=== PATIENT | male | born 1965 | race Caucasian/White ===

== ENCOUNTER 2017-06-30 09:36 | Inpatient (IN) | payer BC, OTHER ==
[~2017-06-30] VITALS: Ht 195.6 cm; Wt 93.0 kg
[2017-06-30] MEDS ORDERED: ONDANSETRON 4 MG/2 ML VIAL IM PRN (23:30)
[2017-06-30] MEDS ORDERED: LOPERAMIDE HCL 2 MG CAPSULE PO PRN ×2 (23:30)
[2017-06-30] MEDS ORDERED: MAGNESIUM HYDROXIDE 30 ML LIQUID UDC PO PRN (23:30)
[2017-06-30] MEDS ORDERED: ACETAMINOPHEN 325 MG TABLET PO PRN (23:30)
[2017-06-30] MEDS ORDERED: DICYCLOMINE HCL 20 MG TABLET PO PRN (23:30)
[2017-06-30] MEDS ORDERED: LORAZEPAM 2 MG/1 ML VIAL IM PRN (23:30)
[2017-06-30] MEDS ORDERED: IBUPROFEN 400 MG TABLET PO PRN (23:30)
[2017-06-30] MEDS ORDERED: diphenhydrAMINE 50 MG CAPSULE PO PRN (23:30)
[2017-06-30] MEDS ORDERED: MAG HYDROX/AL HYDROX/SIMETH 30 ML LIQUID UDC PO PRN (23:30)
[2017-06-30] MEDS ORDERED: LORAZEPAM 1 MG TABLET PO PRN ×2 (23:30)
[2017-06-30] MEDS ORDERED: MIRALAX 17 GM POWD.PACK PO PRN (23:30)
[2017-06-30] MEDS ORDERED: ONDANSETRON ODT 4 MG TAB.RAPDIS SL PRN (23:30)
--- NOTE | 2017-07-01 00:15 | NUR ---
Pre Admission Note Pt seen in intake office. Pt is in stable condition. V/S WNL. No s/s of distress noted at this time. Respirations even and unlabored. Policies on medication disposal explained to and understood by patient. Will admit to unit. Will continue to monitor.
[2017-07-01] MEDS ORDERED: LORAZEPAM 1 MG TABLET PO SCH (00:30)
[2017-07-01] MEDS ORDERED: THIAMINE HCL 200 MG/2 ML VIAL IM ONE (00:30)
--- NOTE | 2017-07-01 00:35 | NUR ---
Admission note Pt is a 52 yo male, A+Ox4, presenting to [facility] for ETOH/Cocaine dependence. Pt has Allergies to dust and pollen, is on Full code status, and on Regular diet. Pt is 6'5" in height and 205 LBS in weight. Pt has medical HX of Depression and Chronic Generalized pain. Pt has Family HX of DMII from Mother and Father. Pt has Primary care provider named Ambreen Mariee. Pt has been drinking Alcohol for 34 years (12 years currently), has reached a level of 400ml moonshine and 6 beers 2-3x/week, and last dose was 18 beers on 06-28-17. Pt has been using Cocaine intranasal for 36 years (12 years currently), has reached a level of 1gm 2-3x/week, and last dose was 1gm on 06-28-17. Pt is taking home medications as follows: Ranitidine 150mg QD- Last dose taken 07-01-17, Lexapro 10mg QD- Last dose taken was "some time ago", Famotidine 10mg PRN, Azelastine HCL eye drops PRN, Aleve 220mg PRN, One a day MVI QD, Cortisporin Otic drops QIDPRN. Pt has HX of previous Detox/Rehab for 7 days Detox @ [place], [place] followed by 4-5 months Rehab @ [place], [place] in 2001. This was the patients last sober period. Pt also states that he drinks alcohol and uses cocaine on weekends mainly and not during the work week. Pt is a former cigarette smoker stating the he quit about 5-6 years ago. Pt is stable at this time with V/S WNL. No s/s of distress noted at this time. Respirations even and unlabored. Will continue to monitor.
[2017-07-01 00:43] LABS: BASOPHILS % (AUTO) 0.4 % (0.0-2.0); EOSINOPHILS # (AUTO) 0.1 K/uL (0.0-0.7); EOSINOPHILS % (AUTO) 1.6 % (0.0-7.0); HEMATOCRIT 41.4 % (36.7-47.1); HEMOGLOBIN 13.8 g/dL (12.5-16.3); LYMPHOCYTES # (AUTO) 1.7 K/uL (20.0-40.0); LYMPHOCYTES % (AUTO) 25.2 % (20.5-51.5); MEAN CORPUSCULAR HEMOGLOBIN 28.9 uug (23.8-33.4); MEAN CORPUSCULAR HGB CONC 33 g/dL (32.5-36.3); MEAN CORPUSCULAR VOLUME 86.4 fL (73.0-96.2); MONOCYTES # (AUTO) 0.4 K/uL (2.0-10.0); MONOCYTES % (AUTO) 6.6 % (0.0-11.0); NEUTROPHILS # (AUTO) 4.5 K/uL (1.8-8.9); NEUTROPHILS % (AUTO) 66.2 % (38.5-71.5); PLATELET COUNT (AUTO) 196 K/uL (152-348); RED BLOOD CELL COUNT(AUTO) 4.79 MIL/uL (4.06-5.63); WHITE BLOOD COUNT (AUTO) 6.8 K/uL (3.6-10.2)
[2017-07-01 00:45] VITALS: BP 154/96
[2017-07-01 00:45] LABS: *AMPHETAMINE, URINE NEGATIVE (NEGATIVE); *BARBITURATE, URINE NEGATIVE (NEGATIVE); *CANNABINOID, URINE NEGATIVE (NEGATIVE); *COCCAINE, URINE POSITIVE (NEGATIVE); *OPIATE, URINE NEGATIVE (NEGATIVE); *PHENCYCLIDINE SCREEN,URINE NEGATIVE (NEGATIVE)
[2017-07-01] MEDS ORDERED: FAMO20TA8 PO (00:48)
[2017-07-01] MEDS ORDERED: NEOM10DR11 EACH EAR (00:48)
[2017-07-01] MEDS ORDERED: RANI150T12 PO (00:48)
[2017-07-01] MEDS ORDERED: MULT-1121 PO (00:48)
[2017-07-01] MEDS ORDERED: NAPR1TAB28 PO (00:48)
[2017-07-01] MEDS ORDERED: ESCI10TA PO (00:48)
[2017-07-01] MEDS ORDERED: AZEL6DRO5 EACHEYE (00:48)
[2017-07-01 00:53] LABS: ETHANOL < 3 MG/DL (0-0)
[2017-07-01] MEDS ORDERED: THIAMINE HCL 200 MG/2 ML VIAL ONE (01:06)
[2017-07-01 01:16] LABS: ALANINE AMINOTRANSFERASE 38 U/L (16-63); ALKALINE PHOSPHATASE 68 U/L (50-136); AMYLASE 131 U/L (25-115); ASPARTATE AMINOTRANSFERASE 14 U/L (15-37); BILIRUBIN,TOTAL 0.5 mg/dL (0.2-1.0); CARBON DIOXIDE 24 mmol/L (21-32); CHLORIDE 104 mmol/L (98-107); CREATININE 1.5 mg/dL (0.6-1.3); GLUCOSE 126 mg/dL (74-106); MAGNESIUM 1.9 mg/dL (1.8-2.4); POTASSIUM 3.3 mmol/L (3.5-5.1); TOTAL PROTEIN, SERUM 7.7 g/dL (6.4-8.2); UREA NITROGEN, BLOOD 19 mg/dL (7-18)
[2017-07-01] MEDS ORDERED: LORAZEPAM 1 MG TABLET ONE (01:23)
[2017-07-01 04:31] VITALS: BP 123/73
--- NOTE | 2017-07-01 06:57 | NUR ---
End of shift note Pt is a 52 yo male, A+Ox4, presenting to [facility] for ETOH/Cocaine dependence. Pt has Allergies to dust and pollen, is on Full code status, and on Regular diet. Pt is on Fall and Seizure precautions. Pt has HX of Depression and Chronic generalized pain. Pt is on PRN medications until further evaluation from MD in AM. No PRN's given throughout shift. Pt slept for a total of 5 HRS. Last CIWA: 4 @0400. No s/s of distress noted at this time. Respirations even and unlabored. Will endorse to day shift nurse.
--- NOTE | 2017-07-01 07:20 | NUR ---
Start of Shift Jewelry Estimator received report on 52 year old male admitted to [facility] early this morning, 07/01/17. Pt admitted for ETOH and Cocaine detoxification. Pt endorses allergies to pollen and dust. Pt eats a regular diet and is a full code. Pt reports a PMH of depression and chronic generalized pain thru out body. Pt reports no history of seizures. Pt has not been started on a taper. ordered OT 2mgAtivan on NOC, pt tolerated well. Last [facility] 4 assessed at 0400. Jewelry Estimator encounters pt resting on bed. Pt is calm and cooperative, able to make needs known. A/O x4, denies any A/VH or HI/SI. Pt with a flat affect and depressed mood. Pt states he feels, ehh with no specific complaints. Pt prefers to remain resting. Bed in low position, wheels locked and side rails up x2. Will continue to monitor, support and encourage according to plan of care.
[2017-07-01 08:10] VITALS: BP 128/86
[2017-07-01] MEDS ORDERED: TUBERCULIN,PURIF.PROT.DERIV. 5 TU/0.1 ML TEST ID ONE (09:00)
[2017-07-01] MEDS: MULTIVITAMINS,THERAPEUTIC TABLET PO SCH (09:21)
[2017-07-01] MEDS: THIAMINE HCL 100 MG TABLET PO SCH (09:21)
[2017-07-01] MEDS: FOLIC ACID 1 MG TABLET PO SCH (09:21)
[2017-07-01] MEDS ORDERED: POTASSIUM CHLORIDE 20 MEQ TAB.PRT.SR PO ONE (10:00)
[2017-07-01] MEDS ORDERED: PATIENT MAY USE OWN MED- MD OK EACHEYE PRN (10:00)
--- NOTE | 2017-07-01 10:59 | NUR ---
PRN Ativan Pt complain increased anxiety, nausea and irritability. Pt skin is moist and he has slight tremors. Administered Ativan per [facility] assessment protocol. Pt tolerated medication well. Will continue to monitor, support and encourage according to plan of care.
--- NOTE | 2017-07-01 12:00 | NUR ---
PRN Re-Assessment Pt states he is feeling better, still has some general complaints. Pt to be started on Ativan taper. Will continue to monitor, support and encourage according to plan of care.
[2017-07-01] MEDS: LORATADINE 10 MG TABLET PO SCH (12:24)
[2017-07-01] MEDS: FLUTICASONE PROP NASAL SPRAY 16 GM BOTTLE NS SCH (12:25)
--- NOTE | 2017-07-01 12:30 | NUR ---
Labs Director And Professor collected swabs for flu and strep as well as urine for tests to run in laboratory as result of MD orders. Director And Professor delivered samples to the lab. Awaiting results.
[2017-07-01 12:43] VITALS: BP 143/85
[2017-07-01] MEDS: LORAZEPAM 1 MG TABLET PO SCH ×2 (15:12→21:35)
--- NOTE | 2017-07-01 15:45 | NUR ---
End of Shift(Endorsement to Primary Nurse) Online Merchandising Manager provided report on 52 year old male admitted to [facility] early this morning, 07/01/17. Pt admitted for ETOH and Cocaine detoxification. Pt endorses allergies to pollen and dust. Pt eats a regular diet and is a full code. Pt reports a PMH of depression and chronic generalized pain thru out body. Pt reports no history of seizures. Pt started on modified Ativan taper. Last CIWA 9 assessed at 1200. Pt has been isolative to room, withdrawn and guarded with staff. Makes needs known. Pleasant and polite with staff. Bed in low position, wheels locked and side rails up x2. Will continue to monitor, support and encourage according to plan of care.
[2017-07-01 16:00] VITALS: BP 140/90
--- NOTE | 2017-07-01 16:15 | NUR ---
Report received; Detailed report received from previous nurse. Patient is currently resting in the room, respirations even and unlabored. All safety measures secured. Will continue to monitor patient.
--- NOTE | 2017-07-01 18:20 | NUR ---
End of shift note; Patient is AOx4. Patient was placed on a modified Ativan taper, no adverse reactions noted. Potassium was supplement by previous nurse. Patient remained compliant with treatment plan and medication regime. Patient's last CIWA is 7 at 1600. Medications noted to be effective in reducing withdrawal symptoms. All safety measures secured. Met all needs.
--- NOTE | 2017-07-01 19:10 | NUR ---
Start of shift note Received report from day shift nurse. Pt is a 52 yo male, A+Ox4, presenting to [facility] for ETOH/Cocaine dependence. Pt has Allergies to dust and pollen, is on Full code status, and on Regular diet. Pt is on Fall and Seizure precautions. Pt has HX of Depression and Chronic generalized pain. Pt is on 3 day Ativan taper, tolerated well. No s/s of distress noted at this time. Respirations even and unlabored. Will continue to monitor.
[2017-07-01 20:17] VITALS: BP 146/97
[2017-07-02] VITALS (7 sets, daily range): BP systolic 124–151; BP diastolic 82–101
--- NOTE | 2017-07-02 07:00 | NUR ---
End of shift note Pt is a 52 yo male, A+Ox4, presenting to [facility] for ETOH/Cocaine dependence. Pt has Allergies to dust and pollen, is on Full code status, and on Regular diet. Pt is on Fall and Seizure precautions. Pt has HX of Depression and Chronic generalized pain. Pt is on 3 day Ativan taper, tolerated well. No PRN's given throughout shift. Pt slept for a total of 11 HRS. Last CIWA: 3 @0400. No s/s of distress noted at this time. Respirations even and unlabored. Will endorse to day shift nurse.
--- NOTE | 2017-07-02 07:30 | NUR ---
START OF SHIFT Pt 52 y/o male admitted for etoh/ cocain dependence. Pt received in room on bed with eyes closed resting, but easily arousable to name. Pt alert and oriented to name, place, and time. Perrla. Skin warm and slightly moist to touch. Respirations even and unlabored. Bilateral hand tremors noted slightly. It was reported that pt slept. It was reported that pt slept for 11 hours last night. Bed on lowest position with side rail x2 up for safety. Call light within reach. No distress noted at this time.
[2017-07-02] MEDS: THIAMINE HCL 100 MG TABLET PO SCH (08:30)
[2017-07-02] MEDS: FOLIC ACID 1 MG TABLET PO SCH (08:30)
[2017-07-02] MEDS: LORATADINE 10 MG TABLET PO SCH (08:30)
[2017-07-02] MEDS: MULTIVITAMINS,THERAPEUTIC TABLET PO SCH (08:30)
[2017-07-02] MEDS: FLUTICASONE PROP NASAL SPRAY 16 GM BOTTLE NS SCH (08:31)
[2017-07-02] MEDS: LORAZEPAM 1 MG TABLET PO SCH ×2 (08:31→20:32)
[2017-07-02] MEDS: PATIENT MAY USE OWN MED- MD OK PO SCH (08:31)
[2017-07-02] MEDS: ESCITALOPRAM OXALATE 10 MG TABLET PO SCH (08:31)
--- NOTE | 2017-07-02 08:31 | NUR ---
PRN Pt with c/o dry eyes. Eye gtt prn per MD order given and tolerated well.
[2017-07-02 09:10] LABS: CREATININE 1.3 mg/dL (0.6-1.3); MAGNESIUM 1.9 mg/dL (1.8-2.4); POTASSIUM 3.7 mmol/L (3.5-5.1)
[2017-07-02 11:07] LABS: HEPATITIS B SURFACE AG Negative (Negative)
--- NOTE | 2017-07-02 16:15 | NUR ---
Therapist prompted client about group times. Client stated he will try to attend groups tomorrow, when he feels better.
[2017-07-02] MEDS: hydrALAZINE HCL 50 MG TABLET PO PRN (16:56)
--- NOTE | 2017-07-02 16:57 | NUR ---
PRN pt with fc=055/71. Hyrdalazine po prn per MD order given and tolerated well.
--- NOTE | 2017-07-02 17:57 | NUR ---
PRN EVAL Pt with jv=126/72
--- NOTE | 2017-07-02 18:39 | NUR ---
END OF SHIFT Pt 52 y/o male admitted for etoh/ cocaine dependence. Pt alert and oriented to name, place, and time. Perrla. Skin warm and slightly moist to touch. Respirations even and unlabored. Bilateral hand tremors noted slightly. Pt observed mostly isolative to room , but did attend group activity. Pt was seen by MD today. Pt was seen by Dr. Gomez this afternoon, but refused any suggestions Dr. Gomez made, per Dr. Gomez. Pt medication compliant and tolerated well. No ASE noted. Bed on lowest position with side rail x2 up for safety. Call light within reach. No distress noted at this time.
--- NOTE | 2017-07-02 20:00 | NUR ---
Start of Shift Notes Received 52 y/o male admitted on 06/30/2017 for etoh/ cocaine dependence. Px is on regular diet, Full Code and has allergies on pollen and dust. Px reported PMHx of depression, seasonal allergies and chronic generalized pain. During the rounds at 2000, px complained of H/A 5/10 with mild anxiety. Px is on 3 day modified Ativan taper. Respirations are even and unlabored. Bed on lowest position with side rail x2 up for safety. Call light within reach. We'll continue to monitor.
--- NOTE | 2017-07-02 20:33 | NUR ---
PRN Tylenol Px complained of H/A 10/15. Tylenol 325 mg/tab, 2 tabs given PO as PRN med. We'll continue to monitor.
[2017-07-03] VITALS: BP 120/81
[2017-07-03 04:00] VITALS: BP 124/79
--- NOTE | 2017-07-03 04:00 | NUR ---
CIWA deferred CIWA deferred at 0000 and 0400 due to the px is asleep, to assess if the px is awake per doctor's order. We'll continue to monitor.
--- NOTE | 2017-07-03 07:21 | NUR ---
End of Shift Notes 52 y/o male admitted on06/30/2017 for etoh/ cocaine dependence. Px is on regular diet, Full Code and has allergies on pollen and dust. Px reported PMHx of depression, seasonal allergies and chronic generalized pain. Px is on 3 day modified Ativan taper. During the shift, px complained of H/A 5/10 with mild anxiety. At 2032, Tylenol 325 mg/tab, 2 tabs given PO as PRN med. Oral intake of 350 ml, voided 1x, No BM. Slept for 9 hours. Respirations are even and unlabored. Bed on lowest position with side rail x2 up for safety. Call light within reach. We'll continue to monitor.
--- NOTE | 2017-07-03 07:37 | NUR ---
BEGINNING OF SHIFT Patient endorsement report received from night manager nurse, all pertinent information discussed. Patient is a 52 year old male with admitting Dx: ETOH dependence. Patient under close observation. Patient currently with ongoing Modified 3 day Ativan taper as ordered, patient is scheduled to receive last dose of Ativan this morning. will monitor ciwa and vital signs closely. patient received PRN: Tylenol during night manager medication effective. medications during night manager. patient slept for 9 hours, and last ciwa score of: 3. Patient received awake, alert and oriented x4, educated regarding plan of care for the day and medication regimen with good verbal understanding. safety measures in place. call light kept with in reach. all needs met and rendered, call light kept with in reach, will continue to monitor closely.
[2017-07-03] MEDS ORDERED: LORAZEPAM 1 MG TABLET PO SCH (09:00)
[2017-07-03 09:04] VITALS: BP 134/86
[2017-07-03] MEDS: PATIENT MAY USE OWN MED- MD OK PO SCH (09:05)
[2017-07-03] MEDS: THIAMINE HCL 100 MG TABLET PO SCH (09:05)
[2017-07-03] MEDS: ESCITALOPRAM OXALATE 10 MG TABLET PO SCH (09:05)
[2017-07-03] MEDS: LORATADINE 10 MG TABLET PO SCH (09:05)
[2017-07-03] MEDS: MULTIVITAMINS,THERAPEUTIC TABLET PO SCH (09:05)
[2017-07-03] MEDS: FOLIC ACID 1 MG TABLET PO SCH (09:05)
[2017-07-03] MEDS: FLUTICASONE PROP NASAL SPRAY 16 GM BOTTLE NS SCH (09:06)
--- NOTE | 2017-07-03 13:36 | NUR ---
THerapist prompted client to come to group today. Client agreed.
[2017-07-03 13:45] VITALS: BP 144/89
[2017-07-03] MEDS ORDERED: CLONIDINE HCL 0.1 MG TABLET PO PRN (14:15)
[2017-07-03] MEDS ORDERED: DIPH50CA37 PO (14:41)
[2017-07-03] MEDS ORDERED: IBUP-1953 PO (14:41)
[2017-07-03] MEDS ORDERED: CLON0.1T14 PO (14:41)
[2017-07-03] MEDS ORDERED: LORA-114 PO (14:41)
[2017-07-03] MEDS ORDERED: FLUT16SP NS (14:47)
[2017-07-03] MEDS ORDERED: RANI150T12 PO (14:47)
[2017-07-03 16:58] VITALS: BP 134/86
--- NOTE | 2017-07-03 19:04 | NUR ---
END OF SHIFT Patient alert and oriented x4, vital signs were WNL during shift. Patient is compliant with therapeutic plan of care. Patient with admitting Dx: ETOH dependence Completed modified Ativan taper as ordered, well tolerated, no ASE noted. During shift patient presented with: tremors that can be felt but not seen, barely sweating and mild anxiety. 0900 CIWA: 3; 1300 CIW: 3; 1700 CIWA: 2. Detox medication effective at reducing withdrawal symptoms. Received No PRN medications during shift. Patient is scheduled to be discharged tomorrow morning, noted self motivated towards sobriety. Encouraged adequate PO fluid intake as tolerated. Encouraged patient to attend group therapies/sessions to learn new coping skills to prevent relapse, noted attending and participating, denies SI/HI. Noted with good appetite during shift. Safety measures in place, call light kept with in reach. Fall precautions observed at all times. Will continue to monitor. Patient endorsed to station installer and repairer nurse, all pertinent information discussed.
[2017-07-03 20:00] VITALS: BP 156/99
--- NOTE | 2017-07-03 20:00 | NUR ---
START OF SHIFT NOTE RECEIVED REPORT FROM DAY SHIFT NURSE. PATIENT IS A 52 YEAR OLD MALE ADMITTED FOR ETOH/COCAINE DEPENDENCE. PATIENT COMPLETED 3 DAY MODIFIED ATIVAN TAPER. PATIENT IS MEDICALLY CLEARED TO BE DISCHARGE TOMORROW. PATIENT IS ALLERGIC TO DUST AND POLLEN. PATIENT DID NOT REQUIRE ANY PRN MEDICATION. LAST CIWA 2. RECEIVED PATIENT IN THE ROOM, ALERT AND ORIENTED X 4. RESPIRATION EVEN AND UNLABORED. PATIENT REPORTS ANXIETY AND SWEATING. DENIES ANY PAIN AT THIS TIME. SAFETY MEASURES IN PLACE. CALL LIGHT IN REACH. WILL CONTINUE TO MONITOR
--- NOTE | 2017-07-03 20:21 | NUR ---
PRN CATAPRES AND BENADRYL ADMINISTRATION PATIENT C/O ANXIETY, SWEATING, BP-155/99 HR-79 AND REQUESTS FOR SLEEP AID. WILL MONITOR FOR EFFECTIVENESS
[2017-07-03] MEDS: hydrALAZINE HCL 50 MG TABLET PO PRN (21:42)
--- NOTE | 2017-07-03 21:42 | NUR ---
PRN HYDRALAZINE ADMINISTRATION PATIENT'S BP RECHECKED . BP- 144/101 HR-73. HYDRALAZINE GIVEN. WILL MONITOR FOR EFFECTIVENESS
--- NOTE | 2017-07-03 22:30 | NUR ---
ÁNGELA ALBERTO RE-ASSESSMENT PATIENT IN BED WITH EYES CLOSED. RESPIRATION EVEN AND UNLABORED. SAFETY MEASURES IN PLACE. CALL LIGHT IN REACH. WILL CONTINUE TO MONITOR. Addendum: 07/04/17 at 0720 by DL ROMERO LVN ERROR : TIME CHARTING
--- NOTE | 2017-07-03 22:42 | NUR ---
PRN HYDRALAZINE RE-ASSESSMENT PATIENT'S BP RECHECKED . BP- 138/95 . HYDRALAZINE EFFECTIVE. WILL CONTINUE TO MONITOR
--- NOTE | 2017-07-03 23:00 | NUR ---
PRN BENADRYL RE-ASSESSMENT PATIENT IN BED WITH EYES CLOSED. RESPIRATION EVEN AND UNLABORED. SAFETY MEASURES IN PLACE. CALL LIGHT IN REACH. WILL CONTINUE TO MONITOR.
--- NOTE | 2017-07-04 | NUR ---
CIWA DEFERRED PATIENT IN BED WITH EYES CLOSED. VS REFUSED. RESPIRATION EVEN AND UNLABORED. WILL CONTINUE TO MONITOR.
--- NOTE | 2017-07-04 04:00 | NUR ---
CIWA DEFERRED PATIENT IN BED WITH EYES CLOSED. VS REFUSED. RESPIRATION EVEN AND UNLABORED. WILL CONTINUE TO MONITOR.
--- NOTE | 2017-07-04 07:12 | NUR ---
END OF SHIFT NOTE PATIENT SLEPT 7 HOURS. FLUID INTAKE 973 ML. VOIDED X 3. NO BM. PATIENT COMPLETED 3 DAY MODIFIED ATIVAN TAPER, TOLERATED WELL AND NO ADVERSE REACTION . PATIENT IS MEDICALLY CLEARED TO BE DISCHARGE TODAY.. PATIENT REPORTED ANXIETY AND SWEATING BEGINNING OF SHIFT. PATIENT WAS GIVEN PRN CLONIDINE FOR BP-156/99, AFTER AN HOUR BP WAS RECHECKED BP-144/101. HYDRALAZINE GIVEN AND WAS EFFECTIVE. BP- 138/95. DENIES ANY PAIN OR HEADACHE. PATIENT COMPLIANT WITH MEDICATIONS AND TREATMENT PLAN. SAFETY MEASURES IN PLACE. CALL LIGHT IN REACH. WILL CONTINUE TO MONITOR. LAST CIWA 2.
--- NOTE | 2017-07-04 07:28 | NUR ---
BEGINNING OF SHIFT Patient endorsement report received from steward/stewardess night nurse, all pertinent information discussed. Patient is a 52 year old male with admitting Dx: ETOH dependence. Patient under close observation. Patient completed Modified 3 day Ativan taper as ordered, patient is scheduled to be discharged today. patient received PRN: Clonidine during steward/stewardess night medication effective. patient slept for 7 hours, and last ciwa score of: 2. Patient received awake, alert and oriented x4, educated regarding plan of care for the day and medication regimen with good verbal understanding. safety measures in place. call light kept with in reach. all needs met and rendered, call light kept with in reach, will continue to monitor closely.
[2017-07-04 08:14] VITALS: BP 127/89
[2017-07-04] MEDS: LORATADINE 10 MG TABLET PO SCH (08:47)
[2017-07-04] MEDS: MULTIVITAMINS,THERAPEUTIC TABLET PO SCH (08:47)
[2017-07-04] MEDS: THIAMINE HCL 100 MG TABLET PO SCH (08:47)
[2017-07-04] MEDS: FOLIC ACID 1 MG TABLET PO SCH (08:47)
[2017-07-04] MEDS: ESCITALOPRAM OXALATE 10 MG TABLET PO SCH (08:47)
[2017-07-04] MEDS: FLUTICASONE PROP NASAL SPRAY 16 GM BOTTLE NS SCH (08:48)
[2017-07-04] MEDS: PATIENT MAY USE OWN MED- MD OK PO SCH (08:48)
--- NOTE | 2017-07-04 09:30 | NUR ---
DISCHARGE Patient discharged off the unit in stable condition, not in any apparent acute distress at 0930. Patient discharged to able to change in stable condition, vital signs WNL. no s/sx of withdrawal. Patient with last ciwa score of: 0. Patient noted self motivated towards sobriety. Patient was provided with education and teaching regarding all discharge instructions with good verbal understanding. Patients prescriptions, discharge instructions and home medications were placed in personal duffel bag. Patient off the unit at 0930.
== END 2017-07-04 09:32 | disposition other institution (70) | DRG 895 ==
LOC: SRC 23:23
PROVIDERS: ADMIT Internal Medicine; ATTEND Internal Medicine
PROC: HZ31ZZZ Individual Counseling for Substance Abuse Treatment, Behavioral (ICD-10-PCS; principal; 2017-06-30)
PROC: HZ41ZZZ Group Counseling for Substance Abuse Treatment, Behavioral (ICD-10-PCS; principal; 2017-06-30)
PROC: HZ2ZZZZ Detoxification Services for Substance Abuse Treatment (ICD-10-PCS; principal; 2017-06-30)
DX: F10.230 Alcohol dependence with withdrawal, uncomplicated (principal); K85.20 Alcohol induced acute pancreatitis without necrosis or infection; F33.2 Major depressive disorder, recurrent severe without psychotic features; N17.9 Acute kidney failure, unspecified; F14.20 Cocaine dependence, uncomplicated; I15.9 Secondary hypertension, unspecified; F17.211 Nicotine dependence, cigarettes, in remission; Y90.0 Blood alcohol level of less than 20 mg/100 ml; K21.9 Gastro-esophageal reflux disease without esophagitis; J30.2 Other seasonal allergic rhinitis; Z83.3 Family history of diabetes mellitus; Z81.1 Family history of alcohol abuse and dependence; Z79.899 Other long term (current) drug therapy; M19.90 Unspecified osteoarthritis, unspecified site; R73.9 Hyperglycemia, unspecified; J00 Acute nasopharyngitis [common cold]; E87.6 Hypokalemia
CPT/HCPCS: 36415; 70030-TC; 80307; 80353; 83735; 85025; 86403; 86592; 86705; 86803; 87070; 87340; 87400; 87806; G0480; J3411; J3535; Q0163